=== PATIENT | female | born 1995 | race Caucasian/White ===

== ENCOUNTER 2017-02-14 08:00 | Inpatient (IN) ==
[2017-02-14] MEDS ORDERED: Famotidine 20 MG/2 ML VIAL IVP PRN (08:21)
[2017-02-14] MEDS ORDERED: Ondansetron 4 MG/2 ML VIAL IVP PRN ×2 (08:21→18:43)
[2017-02-14] MEDS ORDERED: Metoclopramide 10 MG/2 ML VIAL IVP PRN (08:21)
[2017-02-14] MEDS ORDERED: Ringers Solution, Lactated 1,000 ML IVC SCH (08:30)
[2017-02-14] MEDS ORDERED: Oxytocin 20 units/ LR 1000 mL 20 UNIT/1,000 ML BAG IVC SCH ×2 (08:30→22:37)
[2017-02-14 09:44] LABS: Basophils # 0.1 K/mcL (0.0-0.2); Basophils % 0.4 %; Eosinophils % 0.3 %; Hematocrit 34.1 % (35.3-44.9); Hemoglobin 11.2 g/dL (11.5-15.4); Immature Granulocytes % 1.3 % (0-4); Lymphocytes # 2.3 K/mcL (0.6-4.6); Lymphocytes % 19.9 %; Mean Corpuscular HGB Conc 32.8 g/dL (31.6-35.5); Mean Corpuscular Hemoglobin 28.2 pg (28.0-33.3); Mean Corpuscular Volume 85.9 fL (83.0-100.0); Monocytes # 0.9 K/mcL (0.0-1.3); Monocytes % 8.1 %; Neutrophils # 8.1 K/mcL (1.6-8.9); Platelet Count 116 K/mcL (140-400); Red Blood Count 3.97 M/mcL (3.82-4.97); Red Cell Distribution Width 12.7 % (11.5-14.5)
--- NOTE | 2017-02-14 11:21 | Anesthesia Evaluation PreOp ---
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 HX Other Medical History: Denies Any Significant HX Anesthesia History: No Prior Anesthetic Complications, Past Anesthesia ( previous epidural) : Yes Alcohol Use: none Drug use: none Medications and Allergies 3 Allergy/AdvReac Type Severity Reaction Status Date / Time No Known Allergies Allergy Verified 11/29/14 08:37 - Meds/Allergy Pre-op Review Medications Reviewed: Yes Allergies Reviewed: Yes Beta Blockers on Current Med List: No Anesthesia Results - Labs 02/14/17 09:00 Anesthesia Exam BP 114/75 R 16 P 109 T 98.0 Height: 66cm Weight: 73.5kg NPO (# of Hours): 12 hrs solids, 1 hr water Pain Scale: 2 Pain Scale Used: Numeric (1 - 10) - HEENT Pupil (Motor): Pupils equal Mallampati: II Teeth: Normal Oral Opening: Greater than 3 - 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
--- NOTE | 2017-02-14 12:36 | OB/GYN History & Physical ---
Date of Encounter: 02/14/17 Time of Encounter: 12:15 Assessment and Plan (1) 39 weeks gestation of Current visit: Yes Status: Acute (2) Elective induction of labor planned Current visit: No Status: Resolved - NST assessment. - IV fluids. History of Present Illness Chief complaint: Induction of labor HPI: Ms. Sawyer is a 21 year old female at 39 3/7 wks gestation that presents for elective induction. She admits to good movement. She denies any vaginal fluid leakage or bleeding. She denies any contractions upon admission. She admits to some minor trouble breathing, but some that has been her baseline throughout the . She denies headaches, vision changes, chest pain, nausea, vomiting, fever, or chills. GBS: negative HIV Ag/Ab: negative T. Pallidum: negative Rubella Ab: positive Varicella Ab: positive Blood type: O+ HepBSAb: non-reactive (08/01/16) Past Med Surg Social Fam HX - Past Medical History Medical history: no medical history Psychiatric history: no psych history - Past Surgical History Surgical History: no surgical history - Social History Smoking Status: Former smoker Smokeless Tobacco Status: No Alcohol use: none Drug use: none - Family History Mother Name: Radha Marshall Age: 42 Family Member Ethnicity: Non- Living Status: Still Living Hx Family Cardiac Disorders: No Hx Family Respiratory Disorders: No Hx Family Cancer: No Hx Family GI Disorders: No Hx Family Genitourinary Disorders: No Hx Family Endocrine Disorder: No Hx Family Musculoskeletal Disorders: No Hx Family Neuromuscular Disorders: No Hx Family Neurologic Disorders: No Hx Family HEENT Disorders: No Hx Family Autoimmune Disorders: No Hx Family Reproductive Disorders: No Hx Family Psychosocial Disorders: No Hx Family Medical Disorders: No Obstetrical History - Pregnancies : 2 Para: 1 Term: 1 : 0 Ab's: 0 Livin Medications and Allergies 3 Allergy/AdvReac Type Severity Reaction Status Date / Time No Known Allergies Allergy Verified 11/29/14 08:37 Review of System OB All systems PM: reviewed and no additional remarkable complaints except as stated Exam - Vital Signs Vital signs: BP: 114/75 HR: 109 FHR: 134 [place]: 11 - Constitutional Constitutional: well developed, well nourished, no acute distress, average body habitus - Lungs Respiratory exam: CTAB - Cardiovascular Cardiovascular exam: RRR, +S1, +S2 - Abdomen Abdomen: Present: bowel sounds normal, gravid, non tender - Extremities Extremities exam: full ROM, normal inspection, radial pulses palpable and symmetrical Deep Tendon Reflex Grade: 2+ Normal - Cervix Dilation: 3 (per nurse) Results Result Diagrams: 02/14/17 09:00 Abnormal lab results WBC 11.5 K/mcL (4.3-11.1) H 02/14/17 09:00 Hgb 11.2 g/dL (11.5-15.4) L 02/14/17 09:00 Hct 34.1 % (35.3-44.9) L 02/14/17 09:00 Plt Count 116 K/mcL (140-400) L 02/14/17 09:00 All other labs normal. - VTE Reasons for not Prescribing Prophylaxis: Treatment not Indicated - Low risk for VTE - Attending Attestation I examined this patient and my medical decision-making was reviewed with the Resident Physician. I agree with the documented findings, disposition and treatment plan as described except to the extent set forth below. Shira Mike DO
--- NOTE | 2017-02-14 16:15 | OB Labor Progress Note ---
Date of Encounter: 02/14/17 Time of Encounter: 16:12 Labor Progress Note - Subjective Subjective: Patient is comfortable between contractions. She denies any concerns at this time. - Cervix Cervix: 4/75/-3vertex - Heart Tones Heart Tones: baseline 132, category 1 - [place]: q 3 minutes. Pit at 7 mUnits/min - Interventions Interventions: AROM with clear fluid. IUPC placed without difficulty - Plan Plan: Continue pitocin induction. Epidural when desired.
[2017-02-14] MEDS ORDERED: *HR* Nalbuphine 20 MG/ML AMPUL IVP PRN (17:30)
[2017-02-14] MEDS ORDERED: *HR* Nalbuphine 20 MG/ML AMPUL ONE (17:39)
[2017-02-14] MEDS ORDERED: *HR* FentaNYL (PF) 100 MCG/2 ML VIAL ONE (17:45)
[2017-02-14] MEDS ORDERED: Bupivacaine-MPF 0.25% 10 ML VIAL ONE (17:46)
[2017-02-14] MEDS ORDERED: Epidural Premix (fent/bupiv) 110 ML EP ONE (17:48)
[2017-02-14] MEDS ORDERED: Bupivacaine-MPF 0.25% 10 ML VIAL EP ONE (18:43)
[2017-02-14] MEDS ORDERED: *HR* FentaNYL (PF) 100 MCG/2 ML VIAL EP ONE (18:43)
[2017-02-14] MEDS ORDERED: Naloxone 0.4 MG/ML INJ IVP PRN (18:43)
[2017-02-14] MEDS ORDERED: Epidural Premix (fent/bupiv) 110 ML EP SCH (18:45)
--- NOTE | 2017-02-14 20:22 | Anesthesia Procedures ---
Date of Encounter: 02/14/17 Time of Encounter: 19:37 Procedures: Anesthesia - Epidural/Spinal Patient ID/Chart reviewed: Yes Patient examined: Yes OB Eval: Gestational age: 39 OB Eval: : 2 OB Eval: Hx Para: 1 OB Eval: Dilated at (cm): 8 OB Eval: Contractions: Non-stressed pattern Consent Obtained: Yes Supplemental Oxygen: None/Room Air Site Prep: Aseptic Technique, Sterile prep and drape, Povidone-Iodine 1% Patient position: upright Local Anesthetic: Lidocaine 1% Amount of Local Anesthetic used: 3 Touhy Needle Gauge: 18 Touhy Needle Depth (cm): 5 Catheter Depth at Skin (cm): 14 Test Dose (1.5% Lido + Epi): Volume given (mls): 3 Test Dose Result: Negative Loading Dose: 0.25% Marcaine (mls): 10 Loading Dose: Fentanyl (mcg): 100 Loading Dose Administered: Thru Catheter Infusion Med: 0.125% Bupivacaine w/ 2 mcg/ml Fentanyl Infusion Rate (mls/hr): [address]: Tegaderm, Tape Interspace Used: L4-L5 Loss of Resistance (BILL): Yes Blood: No CSF: No Paresthesia: No Procedure: MARYAM placed 1st pass without any immediate noted complications. VSS and FHT stable throughout. Vitals + FHT's: 1937 P 78 R 22 BP 113/65 2003 BP 112/68 P 85 R18
--- NOTE | 2017-02-14 20:36 | OB/GYN Procedure Note ---
Delivery - Delivery Date: 02/14/17 Provider: Shira Mike (Amadou Zheng PGY1) Intrapartum events: none Delivery induction: AROM, oxytocin Delivery monitor: external FHT, external uterine, internal uterine Anesthesia: epidural Estimated Blood Loss: 100 - Infant (s) A Delivery Date: 02/14/17 Delivery Time: 20:13 Presentation: vertex Position: ADDIS Route of delivery: Gender: Male Viability: Viable Pounds: 8 Ounces: 1 Weight Gram: 3.665 kg at 1 minute: 8 at 5 mins: 10 Shoulder Dystocia: not encountered Specimens collected: cord blood Placenta: spontaneous Cord: 3 umbilical vessels - Repair Episiotomy: none Laceration Description: None - Complications Delivery complications: none Delivery comments: Called to room with patient complete and +2 station. Under maternal effort she delivered a viable male weighing 8 lbs. 1 oz. and Apgars 8 and 10 at one and 5 minutes respectively over an intact perineum. Following delivery the head the was bulb suctioned. There was no nuchal cord or shoulder dystocia encountered. was placed on mom's abdomen. Cord was allowed to cease pulsation was double clamped and cut. Cord blood was collected. Placenta delivered spontaneously, complete, and intact with a three-vessel cord. Mother and are recovering in LDR in stable condition. - Disposition Mom disposition: stable in LDR disposition: stable in LDR
[2017-02-14] MEDS ORDERED: Oxytocin 20 units/ LR 1000 mL 20 UNIT/1,000 ML BAG IVC ONE (22:37)
[2017-02-14] MEDS ORDERED: Acetaminophen 325 MG TABLET PO PRN (22:37)
[2017-02-14] MEDS ORDERED: Ibuprofen 600 MG TABLET PO PRN (22:37)
[2017-02-15] MEDS: Prenatal Vit/FA 1 EACH TABLET PO SCH (08:40)
--- NOTE | 2017-02-15 11:46 | OB/GYN Progress Note ---
Date of Encounter: 02/15/17 Time of Encounter: 11:44 - Assessment and Plan (1) Vaginal delivery Current Visit: No Status: Acute Doing well, cont. post care. Subjective - Subjective Principal diagnosis: S/P Interval history: Doing well without c/o. Appropriate lochia and cramping. Good pain control. Objective - Vital Signs Latest vital signs: Vital Signs Temp Pulse Resp BP Pulse Ox 02/15/17 08:34 97.7 F 80 16 102/66 100 02/15/17 05:45 98.2 F 74 18 106/69 98 02/15/17 00:55 98.2 F 82 18 107/67 98 02/14/17 23:55 98.1 F 88 16 107/63 98 02/14/17 22:53 98.2 F 75 16 114/71 96 Intake and Output 02/14/17 02/15/17 02/15/17 23:59 07:59 15:59 Intake Total 1250 / 1250 Output Total 900 / 900 400 / 400 Balance 350 / 350 -400 / -400 Intake: Oral 300 / 300 Other 950 / 950 Output: Urine 900 / 900 400 / 400 Other: Weight 70.5 kg - I&O's I&O's: Intake & Output 02/12/17 02/13/17 02/14/17 02/15/17 23:59 23:59 23:59 23:59 Intake Total 1250 / 1250 Output Total 700 / 700 1300 / 1300 Balance -700 / -700 -50 / -50 Weight 70.5 kg - Exam Lungs: bilateral: normal Chest: Normal S1, Normal S2 Abdomen: Present: soft - Labs Labs: Abnormal lab results WBC 11.5 K/mcL (4.3-11.1) H 02/14/17 09:00 Hgb 11.2 g/dL (11.5-15.4) L 02/14/17 09:00 Hct 34.1 % (35.3-44.9) L 02/14/17 09:00 Plt Count 116 K/mcL (140-400) L 02/14/17 09:00 Consult Discharge Plan - Plan Referrals: NONE,PCP [Primary Care Provider] -
[2017-02-16] MEDS: Prenatal Vit/FA 1 EACH TABLET PO SCH (08:00)
[2017-02-16 08:01] VITALS: BP 105/64
--- NOTE | 2017-02-16 08:21 | Discharge Summary ---
Date of Encounter: 02/16/17 Time of Encounter: 08:10 - Discharge Diagnosis (1) 39 weeks gestation of Priority: Secondary Status: Resolved (2) Vaginal delivery Priority: Primary Status: Resolved Comments: continue routine care discharge home today - Discharge Medications Prescriptions: Ibuprofen [Motrin] 600 mg PO Q6HR PRN #60 tablet PRN Reason: Cramping Docusate [Colace] 100 mg PO BID #30 capsule Home Medications: Docusate [Colace] 100 mg PO BID #30 capsule 02/16/17 [Rx] Ibuprofen [Motrin] 600 mg PO Q6HR PRN #60 tablet 02/16/17 [Rx] Vit/FA 1 each PO DAILY tablet 02/16/17 [Rx] Allergies/Adverse Reactions: 3 Allergy/AdvReac Type Severity Reaction Status Date / Time No Known Allergies Allergy Verified 11/29/14 08:37 Data Procedures and tests throughout hospitalization: Laboratory Tests 02/14/17 09:00 WBC 11.5 H RBC 3.97 Hgb 11.2 L Hct 34.1 L MCV 85.9 MCH 28.2 MCHC 32.8 RDW 12.7 Plt Count 116 L MPV 10.0 Immature Gran % 1.3 Seg Neutrophils % 70.0 Lymphocytes % 19.9 Monocytes % 8.1 Eosinophils % 0.3 Basophils % 0.4 Neutrophils # 8.1 Lymphocytes # 2.3 Monocytes # 0.9 Eosinophils # 0.0 Basophils # 0.1 Date of admission: 02/14/17 08:17 Primary care physician: PCP NONE Consults: 02/14/17 22:37 Consult to Pottery Decoration Designer [CONS] Routine Comment: Vaginal delivery, consult needed Discharging clinician: Amadou Ceja Anticipated date of discharge: 02/16/17 - Patient Status Disposition: Home, Self-Care Condition: Good Functional capacity at discharge: independent ambulation Overall status at discharge: patient is progressing back to baseline - Discharge Instructions Follow Up With: NONE,PCP [Primary Care Provider] - - Diet and Activity Activity: resume usual activities as tolerated Diet: regular diet Hospital Course Reason for admission: induction of labor Delivery: Episiotomy: none Laceration: none Other procedures: none complications: none Discharge diagnosis: IUP at term delivered baby: male Hospital course: Ms. Sawyer is a 21 year old female that presented at 39 3/7 wks gestation for elective induction. She admitted to good movement. She denied any vaginal fluid leakage or bleeding. She denied any contractions upon admission. The attending physician was called to room with patient complete and +2 station. Under maternal effort she delivered a viable male weighing 8 lbs. 1 oz. and Apgars 8 and 10 at one and 5 minutes respectively over an intact perineum. Following delivery the head the was bulb suctioned. There was no nuchal cord or shoulder dystocia encountered. was placed on mom's abdomen. Cord was allowed to cease pulsation was double clamped and cut. Cord blood was collected. Placenta delivered spontaneously, complete, and intact with a three-vessel cord. Mother and are recovering in LDR in stable condition. When seen today, patient says she is doing well and in good mood. She says the baby is also doing well and is currently bottle feeding him instead of breast-feeding him due to personal preference. She has minimal vaginal bleeding and minimal abdominal cramps. She is able to ambulate well independently. She denies any headaches, vision changes, nausea, vomiting, fever , chills, chest pain, or shortness of breath. She has a follow-up appointment with Dr. Mike on 03/16/17. Time Attestation: Total time spent providing and/or coordinating discharge services: Time Spent: Less than 30 minutes Exam - Constitutional Vitals: Temp Pulse Resp BP Pulse Ox 97.3 F L 73 16 105/64 98 02/16/17 07:30 02/16/17 07:30 02/16/17 07:30 02/16/17 07:30 02/15/17 19:55 General appearance IM: A&O X 3, pleasant, no acute distress, answers questions appropriately - Respiratory Respiratory exam: Present: CTAB - Cardiovascular Cardiovascular exam IM: Present: RRR, +S1, +S2 - GI/Abdominal GI/Abdominal exam IM: normal bowel sounds, soft - Uterine Tone: Firm - Extremities Exam Extremities exam IM: Present: full ROM, normal capillary refill, normal inspection, radial pulses palpable and symmetrical. Absent: cyanotic, pedal edema Additional comments: Pedal pulses intact and symmetrical bilaterally. - Neurological Exam Neurological exam: reflexes normal, no focal deficits - Attending Attestation I examined this patient and my medical decision-making was reviewed with the Resident Physician. I agree with the documented findings, disposition and treatment plan as described except to the extent set forth below. HANNAH Oleary
== END 2017-02-16 13:30 | disposition home or self-care (01) | DRG 560 ==
LOC: 1NENULAB 08:17 → 1NENUOBS 22:36
PROVIDERS: ADMIT Obstetrics & Gynecology; ATTEND Obstetrics & Gynecology